=== PATIENT | female | born 1975 | race Caucasian/White ===

== ENCOUNTER 2022-05-07 15:45 | Emergency (ER) | payer BC, SELFPAY ==
--- NOTE | 2022-05-07 15:52 | EXP.UTC ---
Discharge Plan Disposition Patient Disposition: Home, Self-Care Condition: Good Prescriptions Prescriptions: New amoxicillin [amoxicillin] 500 mg tablet 500 mg PO TID 10 Days Qty: 30 0RF methylprednisolone 4 mg Tablets,Dose Pack 4 mg PO DIRECTED Qty: 21 0RF No Action omega-3 fatty acids [Fish Oil Concentrate] 1,000 mg capsule 1,000 mg PO DAILY omeprazole 20 mg capsule,delayed release(DR/EC) 20 mg PO DAILY lisinopril 10 mg tablet 10 mg PO DAILY triamcinolone acetonide [Nasacort] 55 mcg aerosol,spray 1 spray INTRANASAL DAILY Rx Instructions: administer into each nostril eptcxpvqpyibj-fkcajwepi-qtiywqbb ER 8 mg-40 mg-2.5 mg tabs,ext.release 8-40-2.5 mg tablet,ext release sequential 1 tab PO DAILY PRN Centrum Flavor Burst Adult Tablet,Chewable 1 tab PO DAILY ferrous sulfate 325 mg (65 mg iron) tablet 325 mg PO DAILY Referrals Follow up/Referrals: Liz Viera APRN [Primary Care Provider] - See instructions Activity Restrictions/Add. Instructions Additional Instructions/Restrictions: Drink plenty of fluids. Take tylenol or ibuprofen for pain or fever. Take the medications as directed. Follow up with your regular doctor. GO TO THE ER FOR ANY WORSENING SYMPTOMS Clinical Impressions Clinical Impression: Otitis media, Upper respiratory infection Instructions Patient Instructions: Middle Ear Infection Discharge ED Provider: Salty Montalvo [facility] [place] HPI General Stated complaint: Dizzy and Ear Pain Time Seen by Provider: 05/07/22 15:49 History of Present Illness Provider Complaint: She c/o bilateral ear pain for the past 2 days. She has had sinus congestion also. Related Data Home Medications Medication Instructions Recorded Confirmed wkucphnmqzawu-qzeolrnnv-pkhkyxyy 1 tab PO DAILY PRN 10/01/19 ER 8 mg-40 mg-2.5 mg tabs,ext.release ferrous sulfate 325 mg (65 mg 325 mg PO DAILY 10/01/19 10/01/19 iron) tablet lisinopril 10 mg tablet 10 mg PO DAILY 10/01/19 10/01/19 multivitamin-minerals no.55 1 tab PO DAILY 10/01/19 10/01/19 (Centrum Flavor Burst Adult chewable tablet) omega-3 fatty acids 1,000 mg 1,000 mg PO DAILY 10/01/19 10/01/19 capsule (Fish Oil Concentrate) omeprazole 20 mg capsule,delayed 20 mg PO DAILY 10/01/19 10/01/19 release triamcinolone acetonide 55 mcg 1 spray intranasal DAILY 10/01/19 10/01/19 nasal spray aerosol (Nasacort) Previous Rx's Medication Instructions Recorded amoxicillin 500 mg tablet 500 mg PO TID 10 days #30 tabs 05/07/22 methylprednisolone 4 mg tablets in 4 mg PO DIRECTED #21 tabs 05/07/22 a dose pack Allergies Allergy/AdvReac Type Severity Reaction Status Date / Time No Known Allergies Allergy Verified 05/07/22 16:13 [facility] Social History Smoking Status: Never smoker alcohol intake: never current occupational status: other Travel in the last 8 weeks: None ROS Obtained: Yes All systems reviewed & no additional complaints except as documented Constitutional Constitutional: Reports chills and Reports fever(s) Eyes Eyes: Denies eye discharge ENT Ears, Nose, Mouth, and Throat: Reports as per HPI Cardiovascular Cardiovascular: Denies chest pain Respiratory Respiratory: Denies chest congestion and Reports cough Gastrointestinal Gastrointestingal: Reports nausea; Denies abdominal pain, constipation, cramping, diarrhea or vomiting Musculoskeletal Musculoskeletal: Denies arthralgias Integumentary/Breasts Skin/Breast: Denies rash Neurologic Neurologic: Denies paresthesias Physical Exam General General appearance: alert and in no apparent distress Head Head exam: atraumatic, normocephalic and normal inspection Eye Eye exam: Present normal appearance, PERRL and EOMI ENT ENT exam: Present mucous membranes moist and normal external ear exam Expanded ENT Exam TM/Canal exam: Bilateral TM:
[2022-05-07 16:12] VITALS: BP 131/84; PULSE 97; RESP 16; TEMP 37; O2SAT 100; BMI 19.1
[2022-05-07 17:07] VITALS: BP 131/84; PULSE 97; RESP 16; TEMP 37
== END 2022-05-07 17:08 | disposition home or self-care (01) ==
PROVIDERS: Emergency Provider Nurse Practitioner Family; PCP Nurse Practitioner Family
DX: H66.90 Otitis media, unspecified, unspecified ear (principal); J06.9 Acute upper respiratory infection, unspecified
CPT/HCPCS: 99212; G0463

== ENCOUNTER 2022-05-17 09:11 | Emergency (ER) | payer BC, SELFPAY ==
--- NOTE | 2022-05-17 09:14 | EXP.UTC ---
Discharge Plan Disposition Patient Disposition: Home, Self-Care Condition: Good Prescriptions Prescriptions: New methylprednisolone 4 mg Tablets,Dose Pack 4 mg PO DIRECTED Qty: 21 0RF No Action omega-3 fatty acids [Fish Oil Concentrate] 1,000 mg capsule 1,000 mg PO DAILY omeprazole 20 mg capsule,delayed release(DR/EC) 20 mg PO DAILY lisinopril 10 mg tablet 10 mg PO DAILY triamcinolone acetonide [Nasacort] 55 mcg aerosol,spray 1 spray INTRANASAL DAILY Rx Instructions: administer into each nostril avdxkfgswwjgx-lcukhqker-ghzfobnu ER 8 mg-40 mg-2.5 mg tabs,ext.release 8-40-2.5 mg tablet,ext release sequential 1 tab PO DAILY PRN Centrum Flavor Burst Adult Tablet,Chewable 1 tab PO DAILY ferrous sulfate 325 mg (65 mg iron) tablet 325 mg PO DAILY amoxicillin [amoxicillin] 500 mg tablet 500 mg PO TID 10 Days Qty: 30 0RF methylprednisolone 4 mg Tablets,Dose Pack 4 mg PO DIRECTED Qty: 21 0RF Referrals Follow up/Referrals: Liz Viera APRN [Primary Care Provider] - See instructions Activity Restrictions/Add. Instructions Additional Instructions/Restrictions: Avoid contact with the offending substance. Don't start the oral steroids until tomorrow. Follow up with your regular doctor. GO TO THE ER FOR ANY WORSENING SYMPTOMS OR CONCERNS Clinical Impressions Clinical Impression: Allergic reaction Stand Alone Forms Stand Alone Forms: Work/School Release Instructions Patient Instructions: DI for General Allergic Reactions Discharge ED Provider: Salty Montalvo [facility] General Stated complaint: RASH Time Seen by Provider: 05/17/22 09:13 History of Present Illness Provider Complaint: She is here with c/o having a rash all over her body. She states that the rash began about 2 days ago. She has been on amoxicillin before her rash started. She denies any chest pain, shortness of breath, and mouth and throat swelling. Related Data Home Medications Medication Instructions Recorded Confirmed fkgczxlzifoci-ckhevnwpj-hhxoxpnz 1 tab PO DAILY PRN 10/01/19 ER 8 mg-40 mg-2.5 mg tabs,ext.release ferrous sulfate 325 mg (65 mg 325 mg PO DAILY 10/01/19 10/01/19 iron) tablet lisinopril 10 mg tablet 10 mg PO DAILY 10/01/19 10/01/19 multivitamin-minerals no.55 1 tab PO DAILY 10/01/19 10/01/19 (Centrum Flavor Burst Adult chewable tablet) omega-3 fatty acids 1,000 mg 1,000 mg PO DAILY 10/01/19 10/01/19 capsule (Fish Oil Concentrate) omeprazole 20 mg capsule,delayed 20 mg PO DAILY 10/01/19 10/01/19 release triamcinolone acetonide 55 mcg 1 spray intranasal DAILY 10/01/19 10/01/19 nasal spray aerosol (Nasacort) Previous Rx's Medication Instructions Recorded amoxicillin 500 mg tablet 500 mg PO TID 10 days #30 tabs 05/07/22 methylprednisolone 4 mg tablets in 4 mg PO DIRECTED #21 tabs 05/07/22 a dose pack methylprednisolone 4 mg tablets in 4 mg PO DIRECTED #21 tabs 05/17/22 a dose pack Allergies Allergy/AdvReac Type Severity Reaction Status Date / Time amoxicillin Allergy Verified 05/17/22 09:56 [facility] Social History Smoking Status: Never smoker alcohol intake: never current occupational status: other Travel in the last 8 weeks: None ROS Obtained: Yes All systems reviewed & no additional complaints except as documented Constitutional Constitutional: Denies chills and Denies fever(s) Eyes Eyes: Denies eye discharge ENT Ears, Nose, Mouth, and Throat: Denies dizziness, Denies otalgia and Denies sore throat Cardiovascular Cardiovascular: Denies chest pain Respiratory Respiratory: Denies shortness of breath, Denies chest congestion, Denies cough, Denies stridor and Denies wheezing Gastrointestinal Gastrointestingal: Denies nausea or vomiting Musculoskeletal Musculoskeletal: Reports system reviewed and no additional complaints, e
[2022-05-17 09:24] VITALS: BP 128/91; PULSE 120; RESP 19; TEMP 36.7; O2SAT 98; BMI 19.1
[2022-05-17 09:59] VITALS: BP 128/91; PULSE 120; RESP 19; TEMP 36.7
== END 2022-05-17 10:01 | disposition home or self-care (01) ==
PROVIDERS: Emergency Provider Nurse Practitioner Family; PCP Nurse Practitioner Family
DX: T78.40XA Allergy, unspecified, initial encounter (principal); R21 Rash and other nonspecific skin eruption; Z88.1 Allergy status to other antibiotic agents
CPT/HCPCS: 96372; 99212; G0463

== ENCOUNTER 2023-10-10 15:41 | Emergency (ER) | payer BC, SELFPAY ==
[2023-10-10 15:55] VITALS: BP 151/89; PULSE 114; RESP 20; TEMP 36.7; O2SAT 97; BMI 19.2
--- NOTE | 2023-10-10 16:08 | ED_ITS ---
Discharge Plan Disposition Patient Disposition: Home, Self-Care Condition: Good Prescriptions Prescriptions: New methylprednisolone [Medrol (Palmer)] 4 mg tablets,dose pack See Rx Instructions .Route .COMPLEX 6 Days Qty: 21 0RF Rx Instructions: taper pack; No Action pravastatin 40 mg tablet 40 mg PO DAILY Patient Comments: TAKE 1 TABLET BY MOUTH ONCE DAILY pantoprazole 40 mg tablet,delayed release (DR/EC) 40 mg PO DAILY Patient Comments: TAKE 1 TABLET BY MOUTH ONCE DAILY lisinopril 2.5 mg tablet 2.5 mg PO DAILY Patient Comments: TAKE 1 TABLET BY MOUTH ONCE DAILY Nurtec ODT 75 mg tablet,disintegrating 75 mg PO DAILYP PRN (Reason: Migraine Headache) Patient Comments: DISSOLVE 1 TABLET BY MOUTH ONCE DAILY NEEDED FOR MIGRAINE Referrals Follow up/Referrals: Chris Sosa MD [Primary Care Provider] - See instructions Activity Restrictions/Add. Instructions Additional Instructions/Restrictions: Continue to use neti pot Take oral steriods as prescribed Follow up with your Family Doctor if no improvement or any worsneing of symptms Over the counter Motrin and/or Tylneol for pain and fever Clinical Impressions Clinical Impression: Eustachian tube disorder Instructions Patient Instructions: DI for Eustachian Tube Dysfunction-Adult, Eustachian Tube Dysfunction Discharge ED Provider: Shahnaz Avery [facility] General Stated complaint: Right ear pain Mode of Arrival: Ambulatory Source of Information: Patient Limitations: No Limitations Time Seen by Provider: 10/10/23 16:08 Description of Symptoms (Recalled from Triage Doc. by RN): PATIENT C/O RIGHT EAR PAIN X 2-3 WEEKS HEENT Symptoms (Recalled from RN notes): Yes Resp Symptoms (Recalled from RN notes): No Skin Symptoms (Recalled from RN notes): No MS Symptoms (Recalled from RN notes): No Functional Status (Recalled from RN notes): WNL History of Present Illness Provider Complaint: Patient states that she has been having pain and pressure in her right ear for several weeks States she has been using her flonase, neti pot and OTC chlor-tabs but hasnt helped much still having pressure like feeling in her ears so today she came in to get them checked Related Data Home Medications Medication Instructions Recorded Confirmed lisinopril 2.5 mg tablet 2.5 mg PO DAILY 10/10/23 10/10/23 pantoprazole 40 mg tablet,delayed 40 mg PO DAILY 10/10/23 10/10/23 release pravastatin 40 mg tablet 40 mg PO DAILY 10/10/23 10/10/23 rimegepant 75 mg disintegrating 75 mg PO DAILYP PRN Migraine 10/10/23 10/10/23 tablet (Nurtec ODT) Headache Previous Rx's Medication Instructions Recorded methylprednisolone 4 mg tablets in See Rx Instructions .Route 10/10/23 a dose pack (Medrol (Palmer)) .COMPLEX 6 days #21 tabs Allergies Allergy/AdvReac Type Severity Reaction Status Date / Time amoxicillin Allergy Verified 05/17/22 09:56 Worker's Comp Is this a Worker's Comp case?: No [facility] Disclaimer: The information contained in this section may have been updated after the patient was seen, as this information can be updated by other users. Medical History (Updated 10/10/23 @ 16:21 by Shahnaz Avery APRN) Hyperlipidemia History of gastroesophageal reflux (GERD) Social History Smoking Status: Never smoker alcohol intake: never current occupational status: other Travel in the last 8 weeks: None ROS Obtained: Yes All systems reviewed & no additional complaints except as documented and Yes Systems reviewed as appropriate & no additional complaints except as documented Constitutional Constitutional: Reports system reviewed and no additional complaints, except as documented and Reports as per HPI ENT Ears, Nose, Mouth, and Throat: Reports system reviewed and no additional complaints, except as documented, Reports as per HPI and Reports otalgia Cardiovascular Cardiovascular: Reports system reviewed and no additional complaints, except as documented and Reports as per HPI Respiratory Respiratory: Reports system reviewed and no additional complaints, except as documented and Reports as per HPI Gastrointestinal Gastrointestingal: Reports system reviewed and no additional complaints, except as documented and as per HPI Physical Exam General General appearance: alert and in no apparent distress ENT ENT exam: Present mucous membranes moist Expanded ENT Exam TM/Canal exam: Bilateral TM: bulging (clear fluid noted, no redness) Respiratory Respiratory exam: Present normal lung sounds bilaterally; Absent respiratory distress or wheezes Cardiovascular Cardiovascular exam: Present regular rate, normal rhythm and normal heart sounds Abdominal Exam Abdominal exam: Present soft and normal bowel sounds; Absent distention or tenderness Neurological Exam Neurological exam: Present alert, oriented X3 and normal gait Medical Decision Making Javi Inquiry Pt receiving controlled substance: No Javi was queried for this patient: No Vital Signs: 10/10/23 15:55 Temperature 98.1 F Temperature Source Oral Pulse Rate [Right Brachial] 114 H Respiratory Rate 20 Blood Pressure [Right Arm] 151/89 H Blood Pressure Mean [Right Arm] 109 Blood Pressure Source [Right Arm] Automatic Cuff Blood Pressure Position [Right Arm] Sitting 02 Sat by Pulse Oximetry 97 Oxygen Delivery Method Room Air
[2023-10-10 16:21] VITALS: BP 151/89; PULSE 114; RESP 20; TEMP 36.7; O2SAT 97
== END 2023-10-10 16:23 | disposition home or self-care (01) ==
PROVIDERS: Emergency Provider Nurse Practitioner; PCP Internal Medicine Adolescent Medicine
DX: H69.81 Other specified disorders of Eustachian tube, right ear (principal); E78.5 Hyperlipidemia, unspecified; K21.9 Gastro-esophageal reflux disease without esophagitis
CPT/HCPCS: 99212; 99214; G0463

== ENCOUNTER 2024-08-23 10:15 | Emergency (ER) | payer BC, SELFPAY ==
[2024-08-23 10:50] VITALS: BP 141/85; PULSE 90; RESP 19; TEMP 36.9; O2SAT 100; BMI 19.1
--- NOTE | 2024-08-23 10:56 | EXP.UTC ---
Discharge Plan Disposition Patient Disposition: Home, Self-Care Condition: Good Prescriptions Prescriptions: New azithromycin [Zithromax] 250 mg tablet 250 mg PO UD DOSE PK Qty: 6 0RF Rx Instructions: Take two (2) tablets today, then one (1) tablet days #2 thru #5 methylprednisolone 4 mg Tablets,Dose Pack 4 mg PO DIRECTED 6 Days Qty: 21 0RF Rx Instructions: Take 1 pack as directed for 6 days No Action pravastatin 40 mg tablet 40 mg PO DAILY Patient Comments: TAKE 1 TABLET BY MOUTH ONCE DAILY pantoprazole 40 mg tablet,delayed release (DR/EC) 40 mg PO DAILY Patient Comments: TAKE 1 TABLET BY MOUTH ONCE DAILY lisinopril 2.5 mg tablet 2.5 mg PO DAILY Patient Comments: TAKE 1 TABLET BY MOUTH ONCE DAILY Referrals Follow up/Referrals: Chris Sosa MD [Primary Care Provider] - See instructions Activity Restrictions/Add. Instructions Additional Instructions/Restrictions: Drink plenty of fluids. Take tylenol or ibuprofen for pain or fever. Take the medications as directed. Follow up with your regular doctor. GO TO THE ER FOR ANY WORSENING SYMPTOMS Clinical Impressions Clinical Impression: Otitis media, Sinusitis Instructions Patient Instructions: Middle Ear Infection, Methylprednisolone, Azithromycin Print Language Print Language: Bulgarian Discharge ED Provider: Salty Montalvo [facility] General Stated complaint: dizziness, ear pain Mode of Arrival: Ambulatory Source of Information: Patient Limitations: No Limitations Time Seen by Provider: 08/23/24 10:56 Description of Symptoms (Recalled from Triage Doc. by RN): PATIENT C/O BODY ACHES, DIZZY, FEELING LIGHT-HEADED, AND POSSIBLE FLUID IN EARS THAT STARTED THIS MORNING HEENT Symptoms (Recalled from RN notes): Yes Resp Symptoms (Recalled from RN notes): No Skin Symptoms (Recalled from RN notes): No MS Symptoms (Recalled from RN notes): No Functional Status (Recalled from RN notes): WNL History of Present Illness Provider Complaint: She states that for the past 3 days she has had worsening bilateral ear pain and sinus congestion. Related Data Home Medications ?Medication ?Instructions ?Recorded ?Confirmed lisinopril 2.5 mg tablet 2.5 mg PO DAILY 10/10/23 08/23/24 pantoprazole 40 mg tablet,delayed 40 mg PO DAILY 10/10/23 08/23/24 release pravastatin 40 mg tablet 40 mg PO DAILY 10/10/23 08/23/24 Previous Rx's ?Medication ?Instructions ?Recorded azithromycin 250 mg tablet 250 mg PO UD DOSE PK #6 tabs 08/23/24 (Zithromax) methylprednisolone 4 mg tablets in 4 mg PO DIRECTED 6 days #21 tabs 08/23/24 a dose pack Allergies Allergy/AdvReac Type Severity Reaction Status Date / Time amoxicillin Allergy Verified 05/17/22 09:56 Worker's Comp Is this a Worker's Comp case?: No [facility] Disclaimer: The information contained in this section may have been updated after the patient was seen, as this information can be updated by other users. Medical History (Updated 08/23/24 @ 11:22 by Salty Montalvo APRN) Hyperlipidemia History of gastroesophageal reflux (GERD) Social History Smoking Status: Never smoker alcohol intake: never current occupational status: other Travel in the last 8 weeks: None Have you lived/traveled outside [place] in past 30 days?: No Contact w/someone who lives/traveled outside [place] past 30 days?: No Exposure to someone with infectious disease in past 14 days?: No Do you have a fever (greater than 100.4 F or 38 C)?: No Have you tested positive for COVID-19: No Exposed to someone with COVID-19 in past 14 days?: No Do you have a sore throat?: No Do you have a cough?: No Do you have any weakness?: No Do you have any diarrhea?: No Are you experiencing any unusual bleeding?: No Do you have any muscle aches/pain?: No Do you have any abdominal pain?: No Are you experiencing loss of taste or smell?: No ROS Obtained: Yes All systems reviewed & no additional complaints except as documented Constitutional Constitutional: Denies chills, Reports fever(s) and Reports poor appetite Eyes Eyes: Denies eye discharge ENT Ears, Nose, Mouth, and Throat: Denies ear discharge, Reports otalgia, Denies hearing loss, Denies sinus pain and Reports sore throat Cardiovascular Cardiovascular: Denies chest pain and Denies dyspnea Respiratory Respiratory: Denies chest congestion, Reports cough and Denies dyspnea Gastrointestinal Gastrointestingal: Denies abdominal pain, diarrhea, nausea or vomiting Musculoskeletal Musculoskeletal: Denies arthralgias Integumentary/Breasts Skin/Breast: Denies rash Physical Exam General General appearance: alert and in no apparent distress Head Head exam: atraumatic, normocephalic and normal inspection Eye Eye exam: Present normal appearance; Absent PERRL or EOMI ENT ENT exam: Present mucous membranes moist and normal external ear exam Expanded ENT Exam TM/Canal exam: Bilateral TM: erythema, bulging and effusion Nose exam: Absent sinus tenderness Nasal speculum exam: Bilateral: normal Mouth exam: Present normal external inspection and other; Absent drooling Teeth exam: Present normal inspection Throat exam: Present tonsillar erythema and tonsillomegaly Neck Neck exam: Present normal inspection, full ROM and trachea midline; Absent tenderness, meningismus or lymphadenopathy Chest Chest inspection: Present normal inspection and symmetric chest wall rise; Absent tenderness Respiratory Respiratory exam: Present normal lung sounds bilaterally; Absent respiratory distress, wheezes or stridor Cardiovascular Cardiovascular exam: Present regular rate, normal rhythm and normal heart sounds; Absent tachycardia or irregular rhythm Abdominal Exam Abdominal exam: Present soft and normal bowel sounds; Absent distention, tenderness, guarding, rebound or rigidity Extremities Exam Extremities exam: Present normal inspection and normal capillary refill; Absent tenderness, joint swelling or calf tenderness Back Exam Back exam: Present normal inspection and full ROM; Absent tenderness, CVA tenderness (R) or CVA tenderness (L) Neurological Exam Neurological exam: Present alert, oriented X3, CN II-XII intact, normal gait and reflexes normal; Absent motor sensory deficit Psychiatric Psychiatric exam: Present normal affect and normal mood Skin Skin exam: Present warm, dry, intact and normal color Lymphatic Lymphatic Findings: no adenopathy Medical Decision Making Medical Records Medical records reviewed: No I reviewed the patient's medical records. Screening: Per USPSTF and CDC recommendations, given the prevalence of disease in our region, it is our hospital?s policy to screen for HIV and viral Hepatitis for all patients aged 18 and over and those with ongoing risk factors. Jaiv Inquiry Pt receiving controlled substance: No Vital Signs: 08/23/24 10:50 Temperature 98.5 F Temperature Source Oral Pulse Rate [Left Brachial] 90 Respiratory Rate 19 Blood Pressure [Left Arm] 141/85 H Blood Pressure Mean [Left Arm] 103 Blood Pressure Source [Left Arm] Automatic Cuff Blood Pressure Position [Left Arm] Sitting 02 Sat by Pulse Oximetry 100 Oxygen Delivery Method Room Air Lab Data Lab results reviewed: Yes I reviewed the patient's lab results.
[2024-08-23 11:20] VITALS: BP 141/85; PULSE 90; RESP 19; TEMP 36.9; O2SAT 100
== END 2024-08-23 11:24 | disposition home or self-care (01) ==
PROVIDERS: Emergency Provider Nurse Practitioner Family; PCP Internal Medicine Adolescent Medicine
DX: H66.93 Otitis media, unspecified, bilateral (principal); J01.90 Acute sinusitis, unspecified
CPT/HCPCS: 99213; G0381